=== PATIENT | male | born 1990 | race Caucasian/White ===

== ENCOUNTER 2025-03-09 12:08 | Emergency (ER) | payer MEDICAID, SELFPAY ==
--- NOTE | ~2025-03-09 | CT_ITS ---
EXAMINATION: CT ABDOMEN AND PELVIS WITH CONTRAST CLINICAL INFORMATION: Abdominal pain, hernia, incarcerated. COMPARISON: No prior. TECHNIQUE: Multidetector volumetric images were obtained from the superior aspect of the liver through the pubic symphysis following administration 85 mL of Omnipaque 350 intravenous contrast. Sagittal and coronal reformatted images were obtained on the technologist's workstation. Oral contrast: No This CT examination was performed using dose optimization techniques as appropriate, variously including the following: *Automated exposure control *Adjustment of mA and/or kV according to patient size (this includes techniques or standardized protocols for targeted exams where dose is matched to indication/reason for exam; i.e. extremities or head) *Use of iterative reconstruction technique FINDINGS: LUNG BASES: Lung bases are clear bilaterally. There are no effusions. Normal GE junction. The heart size is normal. LIVER, GALLBLADDER, AND BILIARY TREE: The liver is normal in size, shape, and attenuation. No focal hepatic lesion or biliary ductal dilatation is present. The gallbladder is unremarkable with no evidence of radiopaque gallstones, gallbladder wall thickening, or obvious pericholecystic inflammatory changes. PANCREAS: Unremarkable. SPLEEN: Unremarkable. ADRENAL GLANDS: Unremarkable. KIDNEYS AND URETERS: The right kidney is normal. There is no hydronephrosis or mass. No calculi. Right ureter is normal. The left kidney demonstrates approximately 3 nonobstructing calculi in the upper pole region, the largest measuring 6 mm in diameter. There is no hydronephrosis or mass. Right ureter is normal. BLADDER: Normal in appearance. GASTROINTESTINAL TRACT: There is mild dilation of the proximal small bowel, with several air-fluid levels present. Transition point is within an umbilical fat-containing hernia, which also contains a nonincarcerated loop of small bowel (series 3, image 47). The more distal small bowel is nondilated. A normal appendix is visualized. The colon is normal in course and caliber. No inflammation or wall thickening. No rectal abnormality. ABDOMINAL WALL: Umbilical Hernia as stated above, with incarcerated loop of small bowel. No additional hernia is present. LYMPH NODES: There is no abnormal or pathologic lymphadenopathy present. VASCULAR: Normal. No aneurysms. PELVIC VISCERA: The prostate and seminal vesicles appear normal. OSSEOUS STRUCTURES: There is no suspicious lytic or blastic bone lesion. The hip joints and SI joints appear normal. There is AVN of both femoral heads without subchondral collapse present. CT/CT abdomen pelvis w IV con IMPRESSION: 1. Incarcerated umbilical hernia containing a small loop of mid small bowel, resulting in a mechanical small bowel obstruction of the more proximal small bowel. There is no complication evident. 2. No additional acute finding in the abdomen or pelvis. 3. Nonobstructing left nephrolithiasis. 4. AVN of both femoral heads without evidence of subchondral collapse. Electronically signed by: Avinash Parmar MD 03/09/2025 03:09 PM JP
[2025-03-09 12:48] VITALS: BP 134/81; PULSE 65; RESP 16; TEMP 36.7; O2SAT 96; BMI 27.2
--- NOTE | 2025-03-09 12:53 | ED_ITS ---
HPI - General Adult General Chief complaint: Abdominal Pain Stated complaint: Stomach Pain Time Seen by Provider: 03/09/25 14:43 Source: patient Mode of arrival: ambulatory Limitations: no limitations History of Present Illness ED Provider: Dr. Gomez [facility] narrative: 34-year-old male history of umbilical hernia presented hospital today for umbilical pain. Patient stated that he has sudden pain with the nausea. Patient has noticed that hard bulge in his umbilical area. Related Data Allergies Allergy/AdvReac Type Severity Reaction Status Date / Time No Known Allergies Allergy Verified 03/09/25 12:50 Review of Systems 2 Review of Systems: Pertinent review of systems as mentioned in HPI. All other system otherwise negative. PMFSH Past Medical History [facility] Narrative: Umbilical hernia Physical Exam ED Exam Exam: General: Pleasant, no distress, interacting appropriately Head: Normacephalic, atraumatic Gastrointestinal: Hard bulge in the umbilical hernia tenderness to palpation. Skin: Warm and dry Psychiatric: Appropriate mood and thoughts Vital Signs: Vital Signs - 24 hr 03/09/25 12:48 03/09/25 15:11 03/09/25 15:25 Temperature 98.0 F 98.0 F Pulse Rate 65 58 Respiratory Rate 16 20 18 Blood Pressure 134/81 111/58 L Pulse Oximetry 96 94 Oxygen Delivery Method Room Air Room Air 03/09/25 16:43 Temperature 98.0 F Pulse Rate 58 Respiratory Rate 18 Blood Pressure 111/58 L Pulse Oximetry 94 Oxygen Delivery Method Room Air BMI result Body Mass Index 27.2 Course Course Course Narrative: RME: 34-year-old male presents to ED for abdominal pain after heavy lifting of bed. Patient states his abdominal hernia sticks now in his hard. States hernias beginning unusual. Positive for tender hard or umbilical hernia on palpation. Lactic accident labs ordered. Cat scan needed. Medications Administered Discontinued Medications Generic Name Dose Route Start Last Admin Trade Name Freq PRN Reason Stop Dose Admin Hydromorphone HCl 0.5 mg 03/09/25 15:05 03/09/25 15:11 Hydromorphone Hcl 0.5 Mg/0.5 Ml Syringe IVPUSH 03/09/25 15:06 0.5 mg ONCE ONE Administration Protocol Lactated Ringer's 1,000 mls @ 999 mls/hr 03/09/25 15:15 03/09/25 15:11 Lr IV 03/09/25 16:15 999 mls/hr .Q1H1M JANNETTE Administration Iohexol 100 ml 03/09/25 14:44 03/09/25 14:44 Iohexol 350 Mg/Ml 100 Ml Infus..Btl IV 03/09/25 14:45 85 ml ONCE ONE Administration Ondansetron HCl 4 mg 03/09/25 15:05 03/09/25 15:11 Ondansetron Hcl 4 Mg/2 Ml Vial IVPUSH 03/09/25 15:06 4 mg ONCE ONE Administration Procedures Procedure Narrative Procedure Narrative: Umbilical hernia Reduction Aftrer IV dilaudid with pain control. Gentle pressure was applied over the umbilical hernia. Gently reduced the bowel. Incarcerated hernia was reduced. Patient pain improved. Medical Decision Making Medical Decision Making [facility] Narrative: 34-year-old male history umbilical hernia. Presented for evaluation of pain around the umbilical area. The patient has not passed gas or stool since the occurrence of this bulge. CT imaging confirmed incarcerated hernia. I did give patient a dose of IV Zofran IV fluid and IV Dilaudid. We will reduce the umbilical hernia at bedside. Patient has had immediate relief. Discussed the case with the general surgeon on-call Dr. Herrera. Who recommends the patient follow up in clinic if his pain has resolved. Patient has no leukocytosis on lab work. Patient will be discharged with outpatient follow up with the General surgery team. Patient agrees and understands this plan all questions were addressed. Differential Diagnosis Differential Diagnoses: The differential diagnosis associated with the presentation includes Incarcerated umbilical hernia. Lab Data [facility] Lab Attestation statement: I reviewed the patient's lab results. 03/09/25 13:23 03/09/25 13:23 Labs: Lab Results 03/09/25 Range/Units 13:23 WBC 9.0 (4.8-10.8) X10*3/uL RBC 4.74 (4.60-5.80) X10*6/uL Hgb 14.5 (14.0-18.0) g/dl Hct 41.1 L (42.0-52.0) % MCV 86.7 (80.0-98.0) fL MCH 30.6 (27.0-33.0) pg MCHC 35.3 (31.0-36.0) g/dl RDW 12.5 (11.0-16.0) % Plt Count 238 (160-400) X10*3/uL MPV 10.5 (9.4-12.4) fL Immature Gran % (Auto) 0.3 (0.0-0.4) % Neut % (Auto) 75.6 H (45-73) % Lymph % (Auto) 17.0 L (20-40) % [place] % (Auto) 5.3 (2-11) % Eos % (Auto) 1.2 (0-4) % Baso % (Auto) 0.6 (0-2) % Lymph # (Auto) 1.5 (1.2-4.9) X10*3/uL [place] # (Auto) 0.5 (0.1-1.2) X10*3/uL Eos # (Auto) 0.1 (0.0-0.4) X10*3/uL Baso # (Auto) 0.1 (0.0-0.2) X10*3/uL Abs Immat Gran (auto) 0.03 (0.00-0.03) X10*3/uL Absolute Neuts (auto) 6.8 (2.0-8.3) x10*3/uL Absolute Nucleated RBC 0.000 (0.0-0.012) X10*3/uL Nucleated RBC % (auto) 0.0 (0.0-0.2) /100WBC PT 12.9 (11.2-13.5) SEC INR 1.1 (0.9-1.1) APTT 30.5 (26.7-34.1) SEC Sodium 142 (135-145) mmol/L Potassium 3.7 (3.3-5.1) mmol/L Chloride 109 H (96-108) mmol/L Carbon Dioxide 29 (22-29) mmol/L Anion Gap 8 L (12-20) BUN 15 (9-16) mg/dL Creatinine 0.84 (0.5-1.4) mg/dL Estim Creat Clear Calc 130.7 Estimated GFR > 60 Random Glucose 98 (60-115) mg/dL Lactic Acid 0.8 (0.5-2.0) mmol/L Calcium 8.9 (8.4-10.2) mg/dL Total Bilirubin 0.6 (0.0-1.0) mg/dL AST 22 (5-37) U/L ALT 19 (0-40) U/L Alkaline Phosphatase 65 (39-117) U/L Total Protein 7.2 (6.5-8.0) g/dL Albumin 4.6 (3.5-5.0) g/dL Independent Interpretation I performed an independent interpretation of an: CT Scan Radiology Impression Discussion of test interpretation with radiology: I have reviewed the radiologist's reading. Chronic Conditions Umbilical hernia Discharge Plan Discharge Clinical Impression: Hernia, umbilical Patient Disposition: Home, Self-Care Instructions: Umbilical Hernia (ED) [place] [facility] [Provider Group, General Surgery] Referral Note: Recent incarcerated hernia. Reduced in ED. Follow up per Dr. Herrera Clinical Impression: Hernia, umbilical Interventions: ED Discharge Assessment Last Done: 03/09/25 16:43 Discharge Date/Time: 03/09/25 16:44 Print Language: Mauritian
[2025-03-09 13:29] LABS: MANUAL DIFF FLAG NO
[2025-03-09 13:30] LABS: Hematocrit 41.1 % (42.0-52.0); Hemoglobin 14.5 g/dl (14.0-18.0); Imm Gran Abs Auto 0.03 X10*3/uL (0.00-0.03); Imm Gran Pct Auto 0.3 % (0.0-0.4); Lymphocytes Absolute Auto 1.5 X10*3/uL (1.2-4.9); Mean Corpuscular HGB Conc 35.3 g/dl (31.0-36.0); Mean Corpuscular Hemoglobin 30.6 pg (27.0-33.0); Mean Corpuscular Volume 86.7 fL (80.0-98.0); NRBC Abs Auto 0.000 X10*3/uL (0.0-0.012); NRBC Pct Auto 0.0 /100WBC (0.0-0.2); Platelet Count 238 X10*3/uL (160-400); Red Blood Count 4.74 X10*6/uL (4.60-5.80); White Blood Count 9.0 X10*3/uL (4.8-10.8)
[2025-03-09 13:48] LABS: INTERNATIONAL NORM RATIO 1.1 (0.9-1.1); Partial Thromboplastin Time 30.5 SEC (26.7-34.1); Prothrombin Time 12.9 SEC (11.2-13.5)
[2025-03-09 13:50] LABS: Alanine Aminotransferase 19 U/L (0-40); Albumin Level 4.6 g/dL (3.5-5.0); Alkaline Phosphatase 65 U/L (39-117); Anion Gap 8 (12-20); Aspartate Amino Transferase 22 U/L (5-37); Blood Urea Nitrogen 15 mg/dL (9-16); Calcium 8.9 mg/dL (8.4-10.2); Carbon Dioxide 29 mmol/L (22-29); Chloride 109 mmol/L (96-108); Creatinine Clr Calc Pharmacy 130.7; Estimated Glomerular Filt Rate > 60; Potassium 3.7 mmol/L (3.3-5.1); Sodium 142 mmol/L (135-145); Total Protein 7.2 g/dL (6.5-8.0)
[2025-03-09] MEDS: iohexoL 350 MG/ML 100 ML INFUS..BTL IV (14:44)
[2025-03-09 15:11] VITALS: RESP 20
[2025-03-09] MEDS: Lactated Ringers 1,000 ML 999 ML IV (15:11)
[2025-03-09 15:25] VITALS: BP 111/58; PULSE 58; RESP 18; TEMP 36.7; O2SAT 94
[2025-03-09 16:43] VITALS: BP 111/58; PULSE 58; RESP 18; TEMP 36.7; O2SAT 94
== END 2025-03-09 16:44 | disposition home or self-care (01) ==
PROVIDERS: Physician Assistant; Emergency Provider Student in an Organized Health Care Education/Training Program
DX: K42.9 Umbilical hernia without obstruction or gangrene (principal); R10.9 Unspecified abdominal pain; R11.0 Nausea
CPT/HCPCS: 36415; 74177; 80053; 83605; 85025; 85610; 85730; 96374; 96375; 99283; 99285; J1171; J2405; J7120; Q9967

== ENCOUNTER → 2025-03-09 12:51 | Outpatient (BNV) | payer MEDICAID, SELFPAY | PROVIDERS: Emergency Provider Student in an Organized Health Care Education/Training Program; Visit Provider Radiology Diagnostic Radiology | DX: N20.0 Calculus of kidney (principal); K42.9 Umbilical hernia without obstruction or gangrene | CPT/HCPCS: 74177 ==

== ENCOUNTER 2025-03-16 15:35 | Outpatient (AMB) | payer MEDICAID, SELFPAY ==
[2025-03-16 15:36] VITALS: BP 109/71; PULSE 72; BMI 27.6
--- NOTE | 2025-03-16 15:36 | A.OFFVIS_ITS ---
Vital Signs 03/16/25 15:36 Height 5 ft 11 in Weight 198 lb BMI 27.6 BP 109/71 Blood Pressure Location Rt brachial Position Sitting Pulse 72 Intake Visit Reasons: umbilical hernia Intake Note: Patient referred after ED visit for Umbilical hernia. Patient c/o: bulging out, uncomfortable when going to the bathroom. Normal BM. 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 Patient reports he has had the hernia for quite some time. He agrees it has become bothersome he desires repair. He has never had any abdominal surgery before. [facility] Social History (Updated 03/16/25 @ 15:42 by MARITZA Greco) Alcohol intake: current Alcohol intake frequency: does not drink Tobacco use type: Smokeless Tobacco Review of Systems Const All systems reviewed & are unremarkable except as noted in HPI and below Physical Exam Vital Signs: Last Vital Signs Pulse 72 03/16/25 15:36 BP 109/71 03/16/25 15:36 BMI result Body Mass Index 27.6 Const General: cooperative, healthy appearing and comfortable Nutritional Appearance: average body habitus Orientation/consciousness: oriented to person, oriented to place and oriented to time HEENT Head: Yes normal to inspection Ears: hearing grossly normal bilaterally General nose exam: Normal external nose present Eyes Pupils: Equal, round and reactive pupils present EOM: EOMs intact bilaterally Neck Neck: Yes normal visual inspection Chest Chest palpation & inspection: normal inspection of the chest Resp Effort & Inspection: normal respiratory effort and able to speak in complete sentences Cardio Rate: regular rate Rhythm: regular rhythm GI Other: 2-3 cm ventral periumbilical hernia, reducible. No corresponding skin change. Mildly tender but soft. No scars no evidence of hepatosplenomegaly. Inspection: Yes normal to inspection Back/Spine/Pelvis Thoracic/Lumbar Spine: thoracic and lumbar spine normal to inspection Skin General skin exam: no rashes or lesions noted Neuro General: oriented to person, oriented to place and oriented to time Cranial nerves: Yes CN's II-XII intact bilaterally and Yes Equal, round and reactive pupils present Assessment & Plan Assessment & Plan (1) Ventral hernia: Code(s): K43.9 - Ventral hernia without obstruction or gangrene Category: Medical Plan: I discussed with the patient nature of laparoscopic possible open ventral hernia repair. I reviewed with him the risks involved. These include but are not limited to the risk of bleeding the risks of infection the risk of damage to surrounding structures, the risk of hernia recurrence risk of chronic pain, the risk of unsightly scarring and the possibly he might need further surgery in the future all reviewed with him in detail. He told me that he understood. He told me that he understood and accepted the risks he described as inherent to such an operation and lastly he indicated that despite the risks he is still wished to proceed with surgery. Coding Level of Care Code New Pt Level 3 (74462) Diagnoses Ventral hernia K43.9 Time Spent (min) 30 Comment Record review patient visit and coordination of care
== END 2025-03-16 15:50 | disposition home or self-care (01) ==
LOC: HO.HGS 15:35
PROVIDERS: Visit Provider Surgery
DX: K43.9 Ventral hernia without obstruction or gangrene (principal)
CPT/HCPCS: 99203

== ENCOUNTER → 2025-03-16 15:35 | Outpatient (BNVA) | payer MEDICAID, SELFPAY | PROVIDERS: Visit Provider Surgery | DX: K43.9 Ventral hernia without obstruction or gangrene (principal) | CPT/HCPCS: 99202 ==